=== PATIENT | female | born 1970 | race American Indian/Alaskan Native ===

== ENCOUNTER 2016-07-16 12:55 | Emergency (ER) | payer MEDICAID ==
[2016-07-16 13:25] VITALS: BP 151/95
[2016-07-16 14:01] LABS: Basophils % (Auto) 0.7 % (0.0-1.8); Eosinophils % (Auto) 1.4 % (0.0-4.3); Hemoglobin 10.3 gm/dl (10.1-14.3); Mean Corpuscular HGB Conc 31 % (30-34); Mean Corpuscular Volume 76 fl (79-97); Platelet Count 243 K/mm3 (140-440); Red Blood Count 4.35 M/mm3 (3.65-5.03)
[2016-07-16 14:09] LABS: INR 0.93 (0.87-1.13); Mean Corpuscular Hemoglobin 24 pg (28-32); Red Cell Distribution Width 21.7 % (13.2-15.2)
[2016-07-16 14:17] LABS: Anion Gap 15 mmol/L; Blood Urea Nitrogen 14 mg/dL (7-17); Calcium 8.9 mg/dL (8.4-10.2); Carbon Dioxide 28 mmol/L (22-30); Chloride 103.6 mmol/L (98-107); Glucose 100 mg/dL (65-100); Potassium 3.8 mmol/L (3.6-5.0); Sodium 143 mmol/L (137-145)
[2016-07-16 15:53] LABS: Bilirubin,Urine NEG (Negative); Blood,Urine SM (Negative); Ketones,Urine NEG (Negative); Leukocyte Esterase,Urine LG (Negative); Nitrite,Urine NEG (Negative); Protein,Urine <15 mg/dL mg/dL (Negative); Urobilinogen,Urine < 2.0 mg/dL (<2.0)
== END 2016-07-16 17:06 | disposition left against medical advice (07) ==
LOC: ED 12:55
DX: R07.9 Chest pain, unspecified (principal); R06.00 Dyspnea, unspecified; Z91.040 Latex allergy status; Z53.21 Procedure and treatment not carried out due to patient leaving prior to being seen by health care provider
CPT/HCPCS: 36415; 80048; 81001; 81025; 84484; 85025; 85610; 85730; 93005; 93010

== ENCOUNTER 2019-01-31 07:28 | Day surgery (SDC) | payer MEDICAID, SELFPAY ==
[2019-01-29 10:06] LABS: Hematocrit 33.5 % (30.3-42.9); Hemoglobin 10.9 gm/dl (10.1-14.3); Mean Corpuscular HGB Conc 33 % (30-34); Mean Corpuscular Volume 86 fl (79-97); Platelet Count 207 K/mm3 (140-440); Red Blood Count 3.88 M/mm3 (3.65-5.03)
[2019-01-29 10:08] LABS: Red Cell Distribution Width 25.5 % (13.2-15.2)
[2019-01-29 12:31] LABS: Basophils % (Manual) 0 % (0.0-1.8); Total Cells Counted 100
[2019-01-29 12:32] LABS: Anisocytosis 2+; Hypochromasia Few; Platelet Estimate Consistent w Auto
--- NOTE | 2019-01-31 07:50 | Short Stay Summary ---
Short Stay Documentation Date of service: 01/31/19 Narrative H&P: 48y/o with dysfunctional uterine bleeding. Pelvic ultrasound is unremarkable. Patient failed medical management. - History Principal diagnosis: Dysfunctional uterine bleeding Past Medical History: arthritis, other (anxiety) Past Surgical History: appendectomy, Other (tubal ligation) Social history: single - Allergies and Medications Current Medications: Allergies latex Allergy (Verified 01/26/19 12:43) Swelling Home Medications Medication Instructions Recorded Confirmed Last Taken Type ALPRAZolam [Xanax TAB] 0.5 mg PO BID PRN 01/26/19 01/26/19 Unknown History Mirtazapine [Remeron 30mg Rapdis] 25 mg PO HS 01/26/19 01/26/19 Unknown History Quetiapine Fumarate [SEROquel Xr] 400 mg PO HS 01/26/19 01/26/19 Unknown History oxyCODONE /ACETAMINOPHEN [Percocet 1 tab PO Q6HR PRN 01/26/19 01/26/19 Unknown History 5/325] - Physical exam General appearance: no acute distress Integumentary: no rash HEENT: Atraumatic Lungs: Clear to auscultation Breasts: deferred Heart: Regular rate Gastrointestinal: normal Female Genitourinary: deferred Rectal Exam: deferred Extremities: no ischemia Neurological: Normal gait - Brief post op/procedure progress note Date of procedure: 01/31/19 Pre-op diagnosis: dysfunctional uterine bleeding Post-op diagnosis: same Procedure: Hysteroscopy Endometrial ablation via NovaSure were Anesthesia: GETA Surgeon: CADEN POLO Estimated blood loss: minimal Pathology: none Condition: stable - Hospital course Hospital course: The patient was admitted the day of surgery underwent a NovaSure. Please see operative note for details of surgery. Postoperative course was uneventful. - Disposition Condition at discharge: Good Disposition: DC-01 TO HOME OR SELFCARE Short Stay Discharge Plan Activity: other (pelvic rest for 1 week) Diet: regular Additional Instructions: Has a follow-up with Dr. Polo in 2-4 weeks Prescriptions: Ibuprofen [Motrin] 800 mg PO Q8HR PRN #60 tablet PRN Reason: Pain, Mild (1-3) HYDROcodone/APAP 5-325 [[place] 5/325] 1 each PO Q6HR PRN #20 tablet PRN Reason: Pain
--- NOTE | 2019-01-31 08:51 | Anesthesia Consultation ---
Anesthesia Consult and Med Hx Date of service: 01/31/19 - Airway Anesthetic Teeth Evaluation: Good ROM Head & Neck: Adequate Mental/Hyoid Distance: Adequate Mallampati Class: Class II Intubation Access Assessment: Probably Good - Pulmonary Exam CTA: Yes - Cardiac Exam Cardiac Exam: RRR - Pre-Operative Health Status ASA Pre-Surgery Classification: ASA2 Proposed Anesthetic Plan: General - Pulmonary Hx Smoking: No - Cardiovascular System Hx Hypertension: No - Central Nervous System CVA: No Hx Back Pain: Yes Hx Psychiatric Problems: Yes (depression) - Gastrointestinal Hx Gastroesophageal Reflux Disease: No - Endocrine Hx Renal Disease: No Hx Liver Disease: No Hx Insulin Dependent Diabetes: No Hx Non-Insulin Dependent Diabetes: No Hx Thyroid Disease: No - Hematic Hx Anemia: Yes - Other Systems Hx Obesity: Yes - Additional Comments Anesthesia Medical History Comments: No hx anesthetic complications.
--- NOTE | 2019-01-31 08:52 | Anesthesia Day of Surgery ---
Anesthesia Day of Surgery - Day of Surgery Patient Examined: Yes Patient H&P Reviewed: Yes Patient is NPO: Yes
[2019-01-31] MEDS ORDERED: LACTATED RINGERS 1,000 ML IV SCH (09:00)
[2019-01-31] MEDS ORDERED: VERSED IV NR (09:00)
[2019-01-31] MEDS ORDERED: XYLOCAINE MPF 2% ONE (10:29)
[2019-01-31] MEDS ORDERED: SUBLIMAZE ONE (10:29)
[2019-01-31] MEDS ORDERED: DIPRIVAN 10 MG/ML IV ONE (10:29)
[2019-01-31] MEDS ORDERED: VERSED ONE (10:29)
[2019-01-31] MEDS ORDERED: TORADOL ONE (10:52)
[2019-01-31] MEDS ORDERED: ZOFRAN ONE (10:52)
[2019-01-31] MEDS ORDERED: DECADRON ONE (10:52)
[2019-01-31] MEDS ORDERED: NACL 0.9% IR ONE (11:00)
--- NOTE | 2019-01-31 11:13 | Operative Report ---
Operative Report Operative Report: Date of procedure: 01/31/2019 Pre-operative diagnosis: Dysfunctional uterine bleeding Post-operative diagnosis: Same as above Procedure name(s): Hysteroscopy; endometrial ablation via NovaSure Surgeon: Skye Berumen M.D. Physician Interventional Cardiologist: None Anesthesia: General endotracheal anesthesia Findings normal endometrial cavity Indication: 48-year-old with a history of dysfunctional uterine bleeding Procedure The patient was taken to the operating room and given general tracheal anesthesia without complication. The patient was prepped and draped in a normal sterile fashion. A bivalve speculum was placed in the patient's vagina single- tooth tenaculums placed on the anterior lip of the cervix. The cervical os was dilated with graduated dilators. A uterine sound was inserted. The hysteroscope was then placed. Insufflation of the uterine cavity was performed with normal saline. Gen. survey of the uterine cavity revealed normal endometrial cavity. The hysteroscope was then removed. The NovaSure device was then inserted. The endometrial length was 6.0 cm and the uterine width was by 4.5 cm. The device was engaged and it passed the surveillance of the uterine cavity. The NovaSure device was then deployed with a energy of 149 W that lasted for 1 minute 37 seconds. The NovaSure device was then removed. The hysteroscope was again reinserted. There was evidence of charring of the endometrial surface. The remainder of the vaginal instruments were then removed atraumatically. The patient was then successfully extubated taken to the recovery room. All sponge laps and needle counts were correct 2.
[2019-01-31] MEDS: SUBLIMAZE IV PRN ×3 (11:26→11:44)
[2019-01-31] MEDS ORDERED: NORCO 5/325 PO PRN (11:35)
[2019-01-31 12:15] VITALS: BP 122/74
--- NOTE | 2019-01-31 18:38 | Post Anesthesia Evaluation ---
- Post Anesthesia Evaluation Patient Participated: Yes Airway Patent: Yes Stable Respiratory Function: Yes Nausea/Vomiting: No Temp > 96.8F: Yes Pain Manageable: Yes Adequeate Hydration: Yes Anesthesia Complications: No
== END 2019-01-31 12:35 | disposition home or self-care (01) ==
LOC: OR 07:28
PROVIDERS: ATTEND Obstetrics & Gynecology
DX: N93.8 Other specified abnormal uterine and vaginal bleeding (principal); F32.9 Major depressive disorder, single episode, unspecified; F41.9 Anxiety disorder, unspecified; G43.909 Migraine, unspecified, not intractable, without status migrainosus; E66.9 Obesity, unspecified; D64.9 Anemia, unspecified; Z98.890 Other specified postprocedural states; Z91.040 Latex allergy status; Z79.899 Other long term (current) drug therapy; Z68.36 Body mass index [BMI] 36.0-36.9, adult; Z98.51 Tubal ligation status; Z90.49 Acquired absence of other specified parts of digestive tract
CPT/HCPCS: 36415; 58563; 84703; 85007; 85025; A4217; J1100; J1885; J2250; J2405; J2704; J3010; J7120

== ENCOUNTER 2019-04-30 12:38 | Emergency (ER) | payer MEDICAID ==
--- NOTE | 2019-04-30 14:23 | Event Note ---
ED Screening Note ED Screening Note: 48 y/o c/o of sudden onset of coryza , myalgia, vomiting, chest pain, and an episode syncope with collapse. Worsening since onset. This initial assessment/diagnostic orders/clinical plan/treatment(s) is/are subject to change based on patients health status, clinical progression and re- assessment by fellow clinical providers in the ED. Further treatment and workup at subsequent clinical providers discretion. Patient/guardian urged not to elope from the ED as their condition may be serious if not clinically assessed and managed. Initial orders include:
[2019-04-30] MEDS ORDERED: ACETAMINOPHEN 325 MG TAB ONE (14:26)
[2019-04-30] MEDS ORDERED: ACETAMINOPHEN 325 MG TAB PO ONE (14:27)
--- NOTE | 2019-04-30 14:43 | XRay Report ---
CHEST 2 VIEWS INDICATION / CLINICAL INFORMATION: Syncope. Pt c/o all over body pain since last night. + productive cough with yellow sputum, fever, so re throat. COMPARISON: 03/10/11 FINDINGS: SUPPORT DEVICES: None. HEART / MEDIASTINUM: No significant abnormality. LUNGS / PLEURA: No significant pulmonary or pleural abnormality. No pneumothorax. ADDITIONAL FINDINGS: Interval placement of multiple left rib reconstruction plates with anatomic alig nment. No acute skeletal abnormality. IMPRESSION: 1. No acute pulmonary or pleural findings. Signer Name: Kortney Hernandez MD Signed: 04/30/2019 2:39 PM Workstation Name: [id number]
[2019-04-30 15:03] LABS: Basophils % (Auto) 0.2 % (0.0-1.8); Hematocrit 36.9 % (30.3-42.9); Hemoglobin 12.2 gm/dl (10.1-14.3); Lymphocytes # (Auto) 0.3 K/mm3 (1.2-5.4); Lymphocytes % (Auto) 7.9 % (13.4-35.0); Mean Corpuscular HGB Conc 33 % (30-34); Mean Corpuscular Volume 85 fl (79-97); Monocytes # (Auto) 0.7 K/mm3 (0.0-0.8); Monocytes % (Auto) 15.1 % (0.0-7.3); Platelet Count 160 K/mm3 (140-440); Red Blood Count 4.34 M/mm3 (3.65-5.03); Red Cell Distribution Width 17.6 % (13.2-15.2)
[2019-04-30 15:27] LABS: Alanine Aminotransferase 14 units/L (7-56); Albumin 4.1 g/dL (3.9-5); BUN/Creatinine Ratio 10; Blood Urea Nitrogen 7 mg/dL (7-17); Calcium 9.4 mg/dL (8.4-10.2); Hemolysis Index 4
[2019-04-30] MEDS ORDERED: POTASSIUM CHLORIDE ER 20 MEQ TAB PO ONE (15:35)
[2019-04-30] MEDS ORDERED: KETOROLAC 30 MG/1 ML INJ IM ONE (15:35)
--- NOTE | 2019-04-30 15:43 | Emergency Department Report ---
HPI - General Chief Complaint: Upper Respiratory Infection Time Seen by Provider: 04/30/19 14:20 - HPI HPI: 48-year-old -[place] female presents to the emergency department with a complaint of generalized body pain, productive cough with yellow sputum, fever, sore throat that has been going on since last night. She has also been having some nausea and vomiting. Patient says that she passed out when she stood up to go to the bathroom last night. She has not taken anything for her symptoms prior to presentation today. She has a past medical history of migraines, anxiety, previous rib fractures with surgical repair, herniated disks. Her primary care physician is Dr. Manning. ED Past Medical Hx - Past Medical History Previous Medical History?: Yes Hx Hypertension: No Hx Liver Disease: No Hx Renal Disease: No Hx Headaches / Migraines: Yes (Migraines) Hx Psychiatric Treatment: Yes (anxiety) Additional medical history: rib fx (8)/LEFT,L-5 HERNIATED DISC - Surgical History Past Surgical History?: Yes Hx Appendectomy: Yes Additional Surgical History: Left ankle surgery. rib plate - Social History Smoking Status: Never Smoker Substance Use Type: None - Medications Home Medications: Home Medications Medication Instructions Recorded Confirmed Last Taken Type ALPRAZolam [Xanax TAB] 0.5 mg PO BID PRN 01/26/19 01/26/19 01/29/19 History Mirtazapine [Remeron 30mg Rapdis] 25 mg PO HS 01/26/19 01/26/19 01/29/19 History Quetiapine Fumarate [SEROquel Xr] 400 mg PO HS 01/26/19 01/26/19 01/29/19 History oxyCODONE /ACETAMINOPHEN [Percocet 1 tab PO Q6HR PRN 01/26/19 01/26/19 01/29/19 History 5/325] HYDROcodone/APAP 5-325 [[place] 1 each PO Q6HR PRN #20 tablet 01/31/19 Unknown Rx 5/325] Ibuprofen [Motrin 800 MG tab] 800 mg PO Q8HR PRN #20 tablet 04/30/19 Unknown Rx Ondansetron [Zofran Odt] 4 mg PO Q8HR PRN #15 tab.rapdis 04/30/19 Unknown Rx ED Review of Systems ROS: Stated complaint: BODY PAIN Other details as noted in HPI Constitutional: chills, fever Eyes: denies: eye pain, vision change ENT: throat pain. denies: ear pain Respiratory: cough. denies: shortness of breath Cardiovascular: syncope. denies: chest pain Gastrointestinal: nausea, vomiting. denies: abdominal pain Genitourinary: denies: dysuria, discharge Musculoskeletal: myalgia. denies: joint swelling Skin: denies: rash, lesions Neurological: denies: weakness, numbness Physical Exam - Physical Exam Vital Signs: Vital Signs 04/30/19 04/30/19 14:19 15:23 Temperature 101.2 F H Pulse Rate 77 Respiratory 18 18 Rate Blood Pressure 153/84 O2 Sat by Pulse 96 Oximetry Physical Exam: GENERAL: The patient is well-developed well-nourished. HEENT: Normocephalic. Atraumatic. Patient has moist mucous membranes. Oropharynx is clear without tonsillar hypertrophy, erythema or exudates. EYES: Extraocular motions are intact. Pupils equal and reactive to light bilaterally. NECK: Supple. Trachea is midline. CHEST/LUNGS: Clear to auscultation. No cough heard during examination. There is no respiratory distress noted. HEART/CARDIOVASCULAR: Regular. There is no tachycardia. There is no murmur. ABDOMEN: Abdomen is soft, nontender. Patient has normal bowel sounds. There is no abdominal distention. SKIN:Skin is warm and dry. . NEURO: The patient is awake, alert, and oriented. The patient is cooperative. The patient has no focal neurologic deficits. Normal speech. Cranial nerves II through XII grossly intact. MUSCULOSKELETAL: There is no tenderness or deformity. There is no evidence of acute injury. ED Course Vital Signs 04/30/19 04/30/19 14:19 15:23 Temperature 101.2 F H Pulse Rate 77 Respiratory 18 18 Rate Blood Pressure 153/84 O2 Sat by Pulse 96 Oximetry ED Medical Decision Making - Lab Data Result diagrams: 04/30/19 14:52 04/30/19 14:52 - EKG Data -: EKG Interpreted by Me EKG shows normal: sinus rhythm, axis, intervals, QRS complexes, ST-T waves Rate: normal - EKG Data When compared to previous EKG there are: previous EKG unavailable Interpretation: normal EKG - Radiology Data Radiology results: image reviewed interpreted by me: Chest x-ray does not show any pleural effusions, pneumonia, pneumothorax, focal consolidation, or any other acute process. - Medical Decision Making Patient presents to the emergency department with some flulike symptoms and any syncopal episode. The syncope occurred just as the patient was getting up to use the bathroom. This appears consistent with some orthostatic hypotension and may be also secondary to her flulike symptoms. She does present with a fever of 101.2F. Given some Tylenol and then Toradol with some improvement in the fever. The rest of her vital signs have been stable throughout her ED course. Chest x-ray did not show any pneumonia, pleural effusions, or any other acute process. Negative for influenza A and B, negative for rapid strep. Her labs have been mostly unremarkable including CBC and metabolic panel. EKG was normal without ST elevation MS, ischemia or dysrhythmia. The patient has been reevaluated multiple times over multiple hours and has remained stable throughout her ED course. She'll be discharged home to follow up with her primary care physician and will return to the emergency Department with any further episodes of passing out, worsening of her symptoms, or if any acute distress. - Differential Diagnosis influenza, pneumonia, viral URI, orthostatic hypotension, dysrhythmia Critical Care Time: No Critical care attestation.: If time is entered above; I have spent that time in minutes in the direct care of this critically ill patient, excluding procedure time. ED Disposition Clinical Impression: Flu-like symptoms, Viral syndrome Disposition: DC-01 TO HOME OR SELFCARE Is pt being admited?: No Condition: Stable Instructions: Fever in Adults (ED), Upper Respiratory Infection (ED), Viral Syndrome (ED) Additional Instructions: Please follow up with your primary care physician in the next few days. Return to the emergency Department with any worsening of your symptoms, any further episodes of passing out, or any acute distress. You can take Tylenol every 4-6 hours and ibuprofen every 6-8 hours, using weight-based dosing on the back of the bottle, as needed for any fever or dis comfort. Prescriptions: Ibuprofen [Motrin 800 MG tab] 800 mg PO Q8HR PRN #20 tablet PRN Reason: Pain, Mild (1-3) Ondansetron [Zofran Odt] 4 mg PO Q8HR PRN #15 tab.rapdis PRN Reason: Nausea Referrals: MISA MANNING MD [Staff Physician] - 2-3 Days Time of Disposition: 17:29
[2019-04-30 16:17] VITALS: BP 158/69
== END 2019-04-30 17:54 | disposition home or self-care (01) ==
LOC: ED 12:38
DX: B34.9 Viral infection, unspecified (principal); R52 Pain, unspecified; J02.9 Acute pharyngitis, unspecified; R11.2 Nausea with vomiting, unspecified; R05 Cough; R50.9 Fever, unspecified; F41.9 Anxiety disorder, unspecified; G43.909 Migraine, unspecified, not intractable, without status migrainosus; Z90.49 Acquired absence of other specified parts of digestive tract; Z79.899 Other long term (current) drug therapy; Z91.040 Latex allergy status
CPT/HCPCS: 36415; 71046; 80053; 84484; 85025; 87116; 87400; 87430; 93005; 93010; 96372; 99284; J1885

== ENCOUNTER 2020-05-07 12:18 | Outpatient (CLI) | payer MEDICAID | END 2020-05-07 12:19 | disposition home or self-care (01) | LOC: SLR 12:18 | PROVIDERS: ATTEND Surgery | DX: G47.33 Obstructive sleep apnea (adult) (pediatric) (principal); E66.9 Obesity, unspecified | CPT/HCPCS: G0399 ==

== ENCOUNTER 2020-06-05 11:47 | Outpatient (CLI) | payer MEDICAID ==
[2020-06-05 12:31] LABS: Basophils % (Auto) 0.2 % (0.0-1.8); Eosinophils # (Auto) 0.2 K/mm3 (0.0-0.4); Eosinophils % (Auto) 2.7 % (0.0-4.3); Hemoglobin 11.9 gm/dl (10.1-14.3); Lymphocytes # (Auto) 2.4 K/mm3 (1.2-5.4); Lymphocytes % (Auto) 31.9 % (13.4-35.0); Mean Corpuscular HGB Conc 34 % (30-34); Mean Corpuscular Volume 91 fl (79-97); Monocytes # (Auto) 0.7 K/mm3 (0.0-0.8); Monocytes % (Auto) 9.3 % (0.0-7.3); Platelet Count 187 K/mm3 (140-440); Red Blood Count 3.86 M/mm3 (3.65-5.03)
[2020-06-05 12:54] LABS: Alanine Aminotransferase 19 units/L (7-56); Albumin 3.9 g/dL (3.9-5); BUN/Creatinine Ratio 13; Blood Urea Nitrogen 10 mg/dL (7-17); Calcium 8.6 mg/dL (8.4-10.2); Hemolysis Index 2; Iron 64 ug/dL (37-170); Total Iron Binding Capacity 261 mcg/dL (250-450)
== END 2020-06-05 11:48 | disposition home or self-care (01) ==
LOC: LAB 11:47
PROVIDERS: ATTEND Surgery
DX: E66.01 Morbid (severe) obesity due to excess calories (principal); K30 Functional dyspepsia; E11.9 Type 2 diabetes mellitus without complications
CPT/HCPCS: 36415; 80053; 82607; 82652; 82728; 83036; 83550; 84443; 85025; 85730